=== PATIENT | female | born 1965 | race African-American/Black ===

== ENCOUNTER 2019-03-19 02:42 | Emergency (ER) | payer MEDICAID, OTHER ==
[~2019-03-19] VITALS: Ht 170.2 cm; Wt 73.0 kg
[2019-03-19] MEDS ORDERED: SODIUM CHLORIDE 0.9% 1000ML BAG (SEPSIS BOLUS) IV ONE (03:15)
[2019-03-19 04:00] LABS: BASOPHILS % 0.2 % (0.0-2.0); EOSINOPHILS % 0.3 % (0.0-5.0); HEMATOCRIT. 40.1 % (36.0-48.0); HEMOGLOBIN. 13.2 g/dL (12.0-16.0); LYMPHOCYTES % 8.2 % (20.0-50.0); MEAN CORPUSCULAR HEMOGLOBIN 30.7 pg (28.0-32.0); MEAN PLATELET VOLUME 9.7 fl (7.4-10.4); MONOCYTES % 8.9 % (2.0-8.0); NEUTROPHILS % 82.4 % (40.0-76.0); PLATELET 242 x1000/uL (130-400); RED BLOOD CELL COUNT 4.31 mill/uL (4.2-5.4)
[2019-03-19 04:01] LABS: CHLORIDE 107 mEq/L (98-107)
[2019-03-19 04:02] LABS: PROTHROMBIN TIME 10.3 sec (9.6-11.0)
[2019-03-19 04:48] LABS: CLARITY URINE TURBID (CLEAR); COLOR URINE YELLOW (YELLOW); KETONES URINE NEGATIVE (NEGATIVE); LEUKOCYTE ESTERASE URINE 3+ (NEGATIVE); NITRITE URINE POSITIVE (NEGATIVE); OCCULT BLOOD URINE 2+ (NEGATIVE); PROTEIN URINE 2+ (NEGATIVE); SPECIFIC GRAVITY URINE 1.013 (1.005-1.030); UROBILINOGEN URINE 0.2 E.U./dL (0.2-1.0)
[2019-03-19] MEDS ORDERED: KETOROLAC 30MG/ML VIAL IV ONE (05:30)
[2019-03-19] MEDS ORDERED: CEFTRIAXONE SODIUM 1 G/VIAL IM ONE (08:00)
[2019-03-19 09:00] VITALS: BP 135/86
== END 2019-03-19 09:02 | disposition home or self-care (01) ==
LOC: ER 02:42
DX: N12 Tubulo-interstitial nephritis, not specified as acute or chronic (principal); Z59.0 Homelessness
CPT/HCPCS: 36415; 74176; 80053; 81003; 83605; 83690; 84145; 85025; 85610; 87040; 87077; 87086; 87186; 96372; 96374; 99284; J0696; J1885; J7030; Z7610

== ENCOUNTER 2019-03-21 14:38 | Emergency (ER) | payer OTHER ==
[~2019-03-21] VITALS: Ht 160 cm; Wt 62.0 kg
[2019-03-21 14:59] VITALS: BP 132/76
== END 2019-03-21 17:22 | disposition left against medical advice (07) ==
LOC: ER 14:38
DX: Z53.21 Procedure and treatment not carried out due to patient leaving prior to being seen by health care provider (principal)